=== PATIENT | male | born 1960 | race Caucasian/White ===

== ENCOUNTER 2019-03-03 10:53 | Inpatient (IN) | payer MEDICAID ==
[~2019-03-03] VITALS: Ht 190.5 cm; Wt 117.9 kg
[2019-03-03 11:29] VITALS: BP 111/75
--- NOTE | 2019-03-03 12:44 | NUR ---
PT TO ER BED 9 VIA WHEELCHAIR
[2019-03-03 12:59] LABS: BASOPHILS # (AUTO) 0.1 K/uL (0.00-0.22); BASOPHILS % (AUTO) 0.8 % (0.0-2.0); EOSINOPHILS # (AUTO) 0.1 K/uL (0-0.4); HEMATOCRIT 42.9 % (36-52); HEMOGLOBIN 14.6 g/dL (12.0-18.0); LYMPHOCYTES # (AUTO) 1.5 K/uL (2.0-11.5); LYMPHOCYTES % (AUTO) 18.5 % (20.5-51.1); MEAN CORPUSCULAR HEMOGLOBIN 29 pg (27-31); MEAN CORPUSCULAR HGB CONC 34 g/dL (33-37); MEAN CORPUSCULAR VOLUME 85.3 fL (80-94); NEUTROPHILS # (AUTO) 5.4 K/uL (1.8-7.7); NEUTROPHILS % (AUTO) 67.7 % (42.2-75.2); PLATELET COUNT (AUTO) 230 K/uL (140-450); RED BLOOD CELL COUNT(AUTO) 5.03 MIL/uL (4.20-6.10); RED CELL DISTRIBUTION WIDTH 13.6 % (11.6-13.7); WHITE BLOOD COUNT (AUTO) 7.9 K/uL (4.8-10.8)
--- NOTE | 2019-03-03 13:00 | NUR ---
VSS AT THIS TIME. AA0X4. PT SITTING IN BED
[2019-03-03 13:08] LABS: CARBON DIOXIDE 25.4 mmol/L (21-32); CREATININE 1.4 mg/dL (0.7-1.3); POTASSIUM 3.4 mmol/L (3.5-5.1)
[2019-03-03] MEDS ORDERED: NACL 0.9% 1,000 ML IV ONE (13:10)
[2019-03-03] MEDS ORDERED: VANCOMYCIN 1,000 MG in DEXTROSE 5% 250 ML IV ONE (13:10)
[2019-03-03] MEDS ORDERED: KETOROLAC 30 MG/ML VIAL IVP ONE (13:10)
[2019-03-03 13:13] LABS: PROTHROMBIN TIME 9.6 secs (10.8-13.4)
[2019-03-03 13:14] LABS: ALBUMIN 3.9 g/dL (3.4-5.0); TOTAL BILIRUBIN 0.8 mg/dL (0.0-1.0)
[2019-03-03] MEDS ORDERED: VANCOMYCIN 1,000 MG VIAL ONE (13:39)
[2019-03-03] MEDS ORDERED: DOCUSATE SODIUM 100 MG GELCAP PO PRN (13:45)
[2019-03-03] MEDS ORDERED: ONDANSETRON 4 MG/2 ML VIAL IM/IVP PRN (13:45)
[2019-03-03] MEDS ORDERED: ACETAMINOPHEN 325 MG TAB PO PRN (13:45)
[2019-03-03 14:17] LABS: APPEARANCE,URINE CLEAR (CLEAR); BILIRUBIN,URINE NEGATIVE (NEGATIVE); BLOOD, URINE NEGATIVE (NEGATIVE); COLOR,URINE YELLOW (YELLOW); LEUKOCYTE ESTERASE ,URINE NEGATIVE (NEGATIVE); NITRITE, URINE NEGATIVE (NEGATIVE); UGLUCOSE NEGATIVE (NEGATIVE)
[2019-03-03 14:29] LABS: BARBITURATE, URINE NEG. ng/ml (NEG <=200); BENZODIAZEPINE, URINE NEG. ng/mL (NEG <=200); CANNABINOID, URINE NEG. ng/mL (NEG <=50); COCAINE, URINE NEG. ng/mL (NEG <=300); OPIATE, URINE NEG. ng/mL (NEG <=2000); PHENCYCLIDINE SCREEN,URINE NEG. ng/mL (NEG <=25)
--- NOTE | 2019-03-03 14:50 | NUR ---
WHEEL CHAIR ASSISTED C/O LEFT LOWER LEG PAIN WORSEING, REDNESS, WARM TO TOUCH X 4 DAYS SEEN IN URGENT CARE RX BACTRIM 03/01/2019 DX CELLULITIS.PAIN 8/10 ACHING LLE.
--- NOTE | 2019-03-03 14:55 | NUR ---
Patient will be admitted to care of [facility]. Admited to [facility]. Will go to room 107B. Belongings list completed. Report to PAYAM TOMAS.
[2019-03-03 15:24] VITALS: BP 123/89
--- NOTE | 2019-03-03 15:25 | NUR ---
RECEIVED PT REPORT FROM CHARGE NURSE AT BEDSIDE. PT IS AAOX4. VITALS WAS TAKEN. MRSA NARES WAS SWABBED. ORIENTED PT TO ROOM AND CALL LIGHT. NO S/S OF ACUTE DISTRESS, RESPIRATION EVEN, UNLABORED ON ROOM AIR. SKIN DRY AND WARM. DX LEFT LEG CELLULITIS, DENIES PAIN AT THIS TIME, HOWEVER, PT STATED WHEN HE STANDING, HIS LEFT LEG HURTS A LOT. PT WAS ORIENTED TO ROOM AND CALL LIGHT. PLAN OF CARE WAS DISCUSSED WITH PATIENT. PT VERBALIZED UNDERSTANDING. BED AT LOWEST POSITION, SIDE RAILS UP. CALL LIGHT WITHIN REACH.
[2019-03-03] MEDS ORDERED: POTASSIUM CHLORIDE 10 MEQ TABER PO SCH (15:30)
[2019-03-03] MEDS: NACL 0.9% 1,000 ML IV SCH ×2 (15:30→23:23)
--- NOTE | 2019-03-03 16:00 | NUR ---
ADMISSION QUESTIONS DONE. PHYSICAL ASSESSMENT DONE. PICS TAKEN FOR THE LEFT LEG. LEFT LEG IS GENERALLY INTACT, HOWEVER THERE ARE SOME SCABS THAT WERE PICKED BY PT. CULTURE SWAB DONE ON THE OPEN SCAB.
[2019-03-03 16:30] LABS: FREE T4 (FREE THYROXINE) 1.24 ng/dL (0.76-1.46); THYROID STIMULATING HORMONE 1.75 uIU/mL (0.34-3.74)
[2019-03-03 16:31] LABS: CHOL/HDL RATIO 3.3 (1-4.5); LDL (CALC) 113.8 mg/dL (60-100); MAGNESIUM 2.6 mg/dL (1.8-2.4); PHOSPHORUS 3.1 mg/dL (2.5-4.9)
[2019-03-03] MEDS ORDERED: MORPHINE SULFATE 2 MG/ML SYR IVP PRN (18:45)
[2019-03-03] MEDS ORDERED: LIDOCAINE 2% 1000 MG/50 ML VIAL INJ SCH (19:00)
--- NOTE | 2019-03-03 19:20 | NUR ---
ENDORSED PT TO BUILDING APPRAISER RN. PT IS IN STABLE CONDITION. BALER OPERATOR IS DOING BIOPSY ON THE LEFT LEG AT THIS TIME.
--- NOTE | 2019-03-03 19:30 | NUR ---
RECEIVED BEDSIDE REPORT FROM GENOVEVA DUFF, PATIENT IN BED, DRS AT BEDSIDE DOING BX ON LEFT LEG CELLULITIS. ON RA, IV IN LEFT FA 20 G INFUSING NS AT 100 ML/HR, AT BEDSIDE, BED ALARM ON. WILL CONTINUE TO MONITOR
[2019-03-03] MEDS: NYSTATIN CRE 100 MU/GM 15 GM TUBE TP SCH (20:41)
[2019-03-03] MEDS: AMPICILLIN/SULBACTAM 3 GM in NACL 0.9% 100 ML IV SCH (20:41)
[2019-03-03] MEDS: CLOTRIMAZOLE 1% 30 GM CRM TUBE TP SCH (20:41)
--- NOTE | 2019-03-03 20:54 | NUR ---
DUE MEDICATIONS GIVEN, EDUCATION PROVIDED.
--- NOTE | 2019-03-03 23:00 | NUR ---
PATIENT RESTING IN BED, CALL LIGHT WITHIN REACH, WILL CONTINUE TO MONITOR.
[2019-03-04] VITALS: BP 107/56
--- NOTE | 2019-03-04 | NUR ---
V/S TAKEN BP 107/56
--- NOTE | 2019-03-04 02:01 | NUR ---
PATIENT RESTING IN BED NO SIGNS OF DISTRESS
--- NOTE | 2019-03-04 02:05 | NUR ---
PATIENT C/O PAIN GAVE NORCO
[2019-03-04] MEDS: HYDROcodone/APAP 7.5/325 MG 1 TAB PO PRN ×2 (02:06→08:28)
--- NOTE | 2019-03-04 03:51 | NUR ---
WILL GIVE DUE ANTIBIOTIC
[2019-03-04] MEDS: AMPICILLIN/SULBACTAM 3 GM in NACL 0.9% 100 ML IV SCH ×3 (03:57→21:20)
--- NOTE | 2019-03-04 05:26 | NUR ---
PATIENT SLEEPING IN BED CALL LIGHT WITHIN REACH
[2019-03-04 06:53] LABS: BASOPHILS % (AUTO) 0.8 % (0.0-2.0); EOSINOPHILS # (AUTO) 0.2 K/uL (0-0.4); EOSINOPHILS % (AUTO) 3.2 % (0.0-4.0); HEMATOCRIT 37.5 % (36-52); HEMOGLOBIN 12.9 g/dL (12.0-18.0); LYMPHOCYTES # (AUTO) 1.3 K/uL (2.0-11.5); MEAN CORPUSCULAR HEMOGLOBIN 29 pg (27-31); MEAN CORPUSCULAR HGB CONC 34 g/dL (33-37); MEAN CORPUSCULAR VOLUME 85.2 fL (80-94); MONOCYTES % (AUTO) 16.4 % (1.7-9.3); NEUTROPHILS # (AUTO) 3.5 K/uL (1.8-7.7); NEUTROPHILS % (AUTO) 58.6 % (42.2-75.2); PLATELET COUNT (AUTO) 220 K/uL (140-450); RED CELL DISTRIBUTION WIDTH 13.7 % (11.6-13.7)
[2019-03-04 07:18] LABS: ANION GAP 13.5 (8-16); CARBON DIOXIDE 24.5 mmol/L (21-32); CREATININE 1.3 mg/dL (0.7-1.3)
--- NOTE | 2019-03-04 07:22 | NUR ---
ENDORSED PATIENT TO DAY SHIFT NURSE PATIENT STABLE
--- NOTE | 2019-03-04 07:23 | NUR ---
GOT BEDSIDE REPORT FROM GENOVEVA SORIANO. PATIENT ON MED SURGE AND STANDARD PRECAUTIONS IN PLACE. PATIENT AAOX4 AND ON ROOM AIR, NO DISTRESS NOTED. FALL RISK PROTOCOL IN PLACE. R TOE FUNGAL INFECTION AND SKIN RASH ON GROIN CERTIFIED PROFESSIONAL MIDWIFE. L FOOT WITH BANDAGE FOR BIOPSY YESTERDAY. IV ON L FA 20 G INFUSING NS AT 100, IV ASYMPTOMATIC PATENT AND INTACT. BED IN LOW POSITION, CALL LIGHT WITHIN REACH, SIDE RAILS X2 UP
[2019-03-04 07:37] LABS: MAGNESIUM 2.4 mg/dL (1.8-2.4); PHOSPHORUS 3.8 mg/dL (2.5-4.9)
[2019-03-04 08:00] VITALS: BP 135/78
[2019-03-04] MEDS: MULTIVITAMIN/MINERALS 1 TAB PO SCH (08:28)
[2019-03-04] MEDS: NYSTATIN CRE 100 MU/GM 15 GM TUBE TP SCH ×2 (08:29→21:20)
[2019-03-04] MEDS: CLOTRIMAZOLE 1% 30 GM CRM TUBE TP SCH ×2 (08:29→21:20)
--- NOTE | 2019-03-04 08:41 | NUR ---
ADMINISTERED SCHEDULED MEDS AND NORCO PRN 4/10 PAIN. PATIENT TOLERATED WELL
--- NOTE | 2019-03-04 09:46 | NUR ---
SPOKE WITH PATIENT ABOUT ADVANCE DIRECTIVE. GAVE A COPY TO PATIENT.
--- NOTE | 2019-03-04 09:59 | NUR ---
PATIENT HAS BEEN SCREENED AND CATEGORIZED LOW NUTRITION RISK. PATIENT WILL BE SEEN WITHIN 7 DAYS OF ADMISSION. 03/10/[address]
[2019-03-04] MEDS: NACL 0.9% 1,000 ML IV SCH ×2 (10:18→20:12)
--- NOTE | 2019-03-04 12:20 | NUR ---
ADMINISTERED SCHEDULED MEDS. PATIENT TOLERATED WELL, AT BEDSIDE
[2019-03-04] MEDS ORDERED: KETOROLAC 30 MG/ML VIAL IVP SCH (14:00)
--- NOTE | 2019-03-04 14:43 | NUR ---
ADMINISTERED SCHEDULED MEDS. AT BEDSIDE, GIVEN TUNA SANDWICH REQUESTED
[2019-03-04 16:00] VITALS: BP 118/74
--- NOTE | 2019-03-04 17:10 | NUR ---
PATIENT SLEEPING, NO DISTRESS AT THIS TIME, ON ROOM AIR
--- NOTE | 2019-03-04 19:25 | NUR ---
GAVE BEDSIDE REPORT TO GENOVEVA SORIANO. PATIENT ENDORSED IN STABLE CONDITION
--- NOTE | 2019-03-04 19:30 | NUR ---
RECEIVED BEDSIDE REPORT FROM DAY SHIFT RN, PATIENT IN BED, DENIES PAIN, FAMILY AT BEDSIDE QUESTIONS ANSWERED, LEFT FOOT DRESSING INTACT, IV IN LEFT FA 20 G INFUSING NS, CALL LIGHT WITHIN REACH, BED ALARM ON WILL CONTINUE TO MONITOR
--- NOTE | 2019-03-04 21:20 | NUR ---
DUE MEDICATIONS GIVEN PATIENT TOLERATING WELL
--- NOTE | 2019-03-04 22:30 | NUR ---
PATIENT RESTING IN BED NO SIGNS OF DISTRESS OR PAIN
[2019-03-05] VITALS: BP 132/77
--- NOTE | 2019-03-05 00:05 | NUR ---
V/S ALL STABLE, DENIES PAIN AT THIS TIME
--- NOTE | 2019-03-05 01:56 | NUR ---
SLEEPING IN BED
[2019-03-05] MEDS: AMPICILLIN/SULBACTAM 3 GM in NACL 0.9% 100 ML IV SCH ×3 (04:23→20:12)
--- NOTE | 2019-03-05 04:30 | NUR ---
DUE AMPICILLIN GIVEN
[2019-03-05] MEDS: NACL 0.9% 1,000 ML IV SCH ×2 (05:02→16:21)
--- NOTE | 2019-03-05 06:00 | NUR ---
PATIENT RESTING IN BED
--- NOTE | 2019-03-05 07:09 | NUR ---
ENDORSED PATIENT TO DAY SHIFT NURSE PATIENT STABLE
--- NOTE | 2019-03-05 07:10 | NUR ---
GOT BEDSIDE REPORT FROM GENOVEVA SORIANO. PATIENT ON MED SURGE AND STANDARD PRECAUTIONS IN PLACE. PATIENT AAOX4 AND ON ROOM AIR, NO DISTRESS NOTED. L LEG CELLULITIS AND DRESSING CLEAN DRY AND INTACT. FUNGAL INFECTION R TOE OPEN TO AIR, SKIN RASH ON GROIN. IV ON L FA 20 G INFUSING NS AT 75, IV ASYMPTOMATIC PATENT AND INTACT. BED IN LOW POSITION, CALL LIGHT WITHIN REACH, SIDE RAILS X2 UP
[2019-03-05 08:00] VITALS: BP 149/86
--- NOTE | 2019-03-05 08:52 | NUR ---
DUE TO LUAN SCORE CHANGE, PATIENT HAS BEEN CATEGORIZED MODERATE RISK AND WILL BE SEEN WITHIN 3-5 DAYS FROM ADMISSION. 03/06/19- 03/08/[address]
[2019-03-05] MEDS: MULTIVITAMIN/MINERALS 1 TAB PO SCH (08:55)
[2019-03-05] MEDS: CLOTRIMAZOLE 1% 30 GM CRM TUBE TP SCH ×2 (08:55→20:12)
[2019-03-05] MEDS: NYSTATIN CRE 100 MU/GM 15 GM TUBE TP SCH ×2 (08:55→20:13)
--- NOTE | 2019-03-05 09:00 | NUR ---
ADMINISTERED SCHEDULED MEDS. PATIENT TOLERATED WELL
--- NOTE | 2019-03-05 09:50 | NUR ---
PT. SEEN BY DR. LI, TRANSCRIPTION TYPIST. WILL CONTINUE TO FOLLOW HIS ORDER.
[2019-03-05] MEDS: HYDROcodone/APAP 7.5/325 MG 1 TAB PO PRN (10:00)
--- NOTE | 2019-03-05 10:00 | NUR ---
ADMINISTERED NORCO PRN FOR L CALF PAIN 04/28
--- NOTE | 2019-03-05 12:13 | NUR ---
ADMINISTERED SCHEDULED MEDS. PATIENT TOLERATED WELL, AT BEDSIDE
--- NOTE | 2019-03-05 14:32 | NUR ---
PATIENT SLEEPING, ON ROOM AIR, NO DISTRESS NOTED
[2019-03-05 16:00] VITALS: BP 133/70
--- NOTE | 2019-03-05 16:48 | NUR ---
PATIENT WATCHING TV, ON ROOM AIR, NO DISTRESS NOTED
--- NOTE | 2019-03-05 19:21 | NUR ---
GAVE REPORT TO GENOVEVA SLAUGHTER. PATIENT ENDORSED IN STABLE CONDITION
--- NOTE | 2019-03-05 19:25 | NUR ---
RECEIVED FROM AM RN IN BED SITTING UP TALKING ON THE PHONE. GOOD AFFECT. NO COMPLAINTS OF PAIN. ABLE TO VERBALIZE NEEDS WELL. CALL LIGHT WITH IN REACH AND CARE PLANS FOR THE NIGHT DISCUSSED WITH HIM. DX. OF LEFT LEG CELLULITIS. AFEBRILE. IVF SITE TO LEFT FOREARM INTACT AND NO INFILTRATION. ENCOURAGED TO CALL FOR ANY HELP HE MAY NEED.
--- NOTE | 2019-03-05 22:00 | NUR ---
PT. STILL AWAKE AND WATCHING TV. NO COMPLAINTS DONE. DENIES ANY PAIN AT THIS TIME. CALL LIGHT WITH IN REACH.
[2019-03-05 23:22] VITALS: BP 127/81
--- NOTE | 2019-03-05 23:23 | NUR ---
PT. STILL AWAKE WATCHING TV. PROVIDED WITH SNACK REQUESTED. "I AM HUNGRY" ABLE TO VERBALIZE NEEDS WELL. ABLE TO USE CALL LIGHT FOR HELP WELL.
--- NOTE | 2019-03-06 01:34 | NUR ---
PT. SLEEPING. NO RESTLESSNESS. CALL LIGHT WITH IN REACH.
[2019-03-06] MEDS: NACL 0.9% 1,000 ML IV SCH ×2 (02:12→04:36)
--- NOTE | 2019-03-06 03:00 | NUR ---
PT. SLEEPS IN AND OUT AT THIS TIME. URINATED IN URINAL. DRESSING TO LEFT LEG INTACT AND NO BLEEDING.
[2019-03-06] MEDS: AMPICILLIN/SULBACTAM 3 GM in NACL 0.9% 100 ML IV SCH (04:29)
--- NOTE | 2019-03-06 06:19 | NUR ---
AM PERSONAL HYGIENE RENDERED BY LAB ASST. NO COMPLAINTS DONE. ABLE TO VERBALIZE WELL. DENIES PAIN. IVF SITE INTACT AND NO INFILTRATION. DRESSING TO LEFT LEG INTACT AND NO BLEEDING.
--- NOTE | 2019-03-06 07:20 | NUR ---
GOT BEDSIDE REPORT FROM GENOVEVA SLAUGHTER. PATIENT ON MED SURGE AND STANDARD PRECAUTIONS IN PLACE. PATIENT AAOX4 AND ON ROOM AIR, NO DISTRESS NOTED. L LEG WOUND DRESSING CLEAN DRY AND INTACT. PATIENT AMBULATORY WITH ASSIST AND CONTINENT. IV ON L FA 20 G INFUSING NS AT 100, IV ASYMPTOMATIC PATENT AND INTACT. FALL RISK PROTOCOL IN PLACE. BED IN LOW POSITION, CALL LIGHT WITHIN REACH, SIDE RAILS X2 UP
[2019-03-06 08:00] VITALS: BP 136/75
[2019-03-06] MEDS: NYSTATIN CRE 100 MU/GM 15 GM TUBE TP SCH (09:00)
[2019-03-06] MEDS: CLOTRIMAZOLE 1% 30 GM CRM TUBE TP SCH (09:00)
[2019-03-06] MEDS: MULTIVITAMIN/MINERALS 1 TAB PO SCH (10:06)
[2019-03-06] MEDS ORDERED: AMOX-999 PO (10:08)
[2019-03-06] MEDS ORDERED: BETA1CRE5 TP (10:10)
[2019-03-06] MEDS ORDERED: IBUP-1842 PO (10:10)
[2019-03-06] MEDS ORDERED: NYST1CRE8 TP (10:19)
--- NOTE | 2019-03-06 10:19 | NUR ---
ADMINISTERED SCHEDULED MEDS. PATIENT TOLERATED WELL
--- NOTE | 2019-03-06 11:20 | NUR ---
DISCHARGE INSTRUCTIONS PROVIDED TO PATIENT. INSTRUCTED TO FOLLOW UP WITH PCP WITHIN 5-7 DAYS AND TO COMPLETE FULL COURSE OF ANTIBIOTICS. [employer] PROVIDED TO PATIENT ORDERED. ER HAS FACE SHEET AND GREEN PAPER SIGNED BY PATIENT. PICTURES TAKEN OF L FOOT. PT REFUSED BOTH PNA AND FLU VACCINES. ALL BELONGINGS SENT HOME WITH PATIENT. PRESCRIPTION GIVEN TO PATIENT IN FOLDER. PATIENT VERBALIZED UNDERSTANDING. REMOVED WRIST BANDS AND IV, IV TIP INTACT. PATIENT WHEELED TO MAIN [employer]
== END 2019-03-06 11:20 | disposition home or self-care (01) | DRG 380 ==
LOC: MED 10:53 → MMU 13:42 → MTU 14:35
PROVIDERS: ADMIT General Practice; ATTEND General Practice
PROC: 0HBLXZX Excision of Left Lower Leg Skin, External Approach, Diagnostic (ICD-10-PCS; principal; 2019-03-03)
DX: L97.929 Non-pressure chronic ulcer of unspecified part of left lower leg with unspecified severity (principal); N17.0 Acute kidney failure with tubular necrosis; G93.41 Metabolic encephalopathy; E83.41 Hypermagnesemia; E87.1 Hypo-osmolality and hyponatremia; B35.3 Tinea pedis; L03.116 Cellulitis of left lower limb; E87.6 Hypokalemia; B35.6 Tinea cruris; E78.5 Hyperlipidemia, unspecified; R73.03 Prediabetes
CPT/HCPCS: 36415; 71045; 73590; 73610; 80048; 80053; 80305; 81003; 82150; 83036; 83605; 83690; 83735; 83880; 84100; 84403; 84436; 84439; 84443; 84479; 84484; 84550; 85025; 85610; 87040; 87070; 87081; 87186; 88305; 93005; 93970; 96374; 97110; 97116; 97161-GP; 97530; 99285; J0295; J1885; J2001; J2270; J3370; J7030; Q0092

== ENCOUNTER 2019-03-20 09:55 | Emergency (ER) | payer MEDICAID ==
[~2019-03-20] VITALS: Ht 188 cm; Wt 115.7 kg
[~2019-03-20 09:55] MED LIST: AMOX-999 PO; BETA1CRE5 TP; IBUP-1842 PO; NYST1CRE8 TP
[2019-03-20 10:05] VITALS: BP 142/88
--- NOTE | 2019-03-20 10:05 | NUR ---
PT BIB SELF FOR SUTURE REMOVAL FROM LATERAL LT LEG. PT REPORTS SORE LT ANKLE PAIN AT 5/10. PT WAS INOPATIENT HERE AT [facility] FOR CELLULITIS AND HAD BIOPSY PERFORMED ON LT LEG. WOUND IS CLOSED, NO ERYTHEMA, EDEMA, OR DRAINAGE PRESENT. VSS. ER MD TO SEE PT. MEDHX:DENIES RX:DENIES
[2019-03-20 11:21] VITALS: BP 136/96
--- NOTE | 2019-03-20 11:21 | NUR ---
Patient discharged with v/s stable. Written and verbal after care instructions given and explained. Patient verbalized understanding. Ambulatory with steady gait. All questions addressed prior to discharge. Advised to follow up with PMD.
== END 2019-03-20 11:21 | disposition home or self-care (01) ==
LOC: MED 09:55
DX: Z48.02 Encounter for removal of sutures (principal); Z79.2 Long term (current) use of antibiotics; Z79.1 Long term (current) use of non-steroidal anti-inflammatories (NSAID); Z79.899 Other long term (current) drug therapy
CPT/HCPCS: 99281

== ENCOUNTER 2019-04-02 16:37 | Emergency (ER) | payer MEDICAID ==
[~2019-04-02] VITALS: Ht 188 cm; Wt 120.4 kg
[2019-04-02 16:38] VITALS: BP 160/95
--- NOTE | 2019-04-02 17:00 | NUR ---
C/O COUGH, SORE THROAT & GENERALIZED WEAKNESS X TODAY. LEFT ANKLWE PAIN & SWOLLEN X 2 MONTHS.MED HX : CELLULITIS LEFT LOWER LEG & ADMITTED HERE 03/03- 03/06 .
[2019-04-02 17:38] VITALS: BP 158/88
== END 2019-04-02 17:39 | disposition home or self-care (01) ==
LOC: MED 16:37
DX: R05 Cough (principal); R42 Dizziness and giddiness; Z79.899 Other long term (current) drug therapy
CPT/HCPCS: 99283

== ENCOUNTER 2019-12-06 11:58 | Emergency (ER) | payer MEDICAID ==
[~2019-12-06] VITALS: Ht 190.5 cm; Wt 122.5 kg
[2019-12-06 12:07] VITALS: BP 150/80
--- NOTE | 2019-12-06 12:08 | NUR ---
58/M presents to ED with complaints of left ankle pain x 2 weeks. Pt reports he was admitted here approximately 8 months ago for cellulitis to left ankle. Pt denies any injury or fall. Denies any discoloration, redness or swelling. Pt states "I came in before it gets to that point." Pt denies any medical hx otherwise. Ambulatory with steady gait. Pt c/o 10 pain, aching, non radiating, constant. VSS.
[2019-12-06 13:19] LABS: BASOPHILS % (AUTO) 0.8 % (0.0-2.0); EOSINOPHILS # (AUTO) 0.1 K/uL (0-0.4); EOSINOPHILS % (AUTO) 2.1 % (0.0-4.0); HEMATOCRIT 41.5 % (36-52); HEMOGLOBIN 13.9 g/dL (12.0-18.0); LYMPHOCYTES # (AUTO) 1.1 K/uL (2.0-11.5); LYMPHOCYTES % (AUTO) 20.1 % (20.5-51.1); MEAN CORPUSCULAR HEMOGLOBIN 29 pg (27-31); MEAN CORPUSCULAR HGB CONC 34 g/dL (33-37); MEAN CORPUSCULAR VOLUME 86.9 fL (80-94); MONOCYTES # (AUTO) 0.7 K/uL (0.8-1.0); MONOCYTES % (AUTO) 13.3 % (1.7-9.3); NEUTROPHILS # (AUTO) 3.4 K/uL (1.8-7.7); NEUTROPHILS % (AUTO) 63.7 % (42.2-75.2); PLATELET COUNT (AUTO) 221 K/uL (140-450); RED BLOOD CELL COUNT(AUTO) 4.78 MIL/uL (4.20-6.10); RED CELL DISTRIBUTION WIDTH 13.5 % (11.6-13.7); WHITE BLOOD COUNT (AUTO) 5.3 K/uL (4.8-10.8)
[2019-12-06] MEDS ORDERED: IBUPROFEN 800 MG TAB PO ONE (13:30)
[2019-12-06 14:24] VITALS: BP 150/80
== END 2019-12-06 14:24 | disposition home or self-care (01) ==
LOC: MED 11:58
DX: S93.402A Sprain of unspecified ligament of left ankle, initial encounter (principal); Z79.899 Other long term (current) drug therapy; X58.XXXA Exposure to other specified factors, initial encounter; Y93.89 Activity, other specified; Y92.89 Other specified places as the place of occurrence of the external cause; Y99.8 Other external cause status
CPT/HCPCS: 36415; 73610; 85025; 99284; Q0092

== ENCOUNTER 2019-12-07 21:26 | Inpatient (IN) | payer MEDICAID ==
[~2019-12-07] VITALS: Ht 190.5 cm; Wt 122.0 kg
[2019-12-07 21:40] VITALS: BP 178/89
--- NOTE | 2019-12-07 21:43 | NUR ---
TO LOBBY A/W BED VIA WHEEL CHAIR
[2019-12-07] MEDS ORDERED: ACETAMINOPHEN EXTRA STRENGTH 500 MG TAB PO ONE (21:45)
--- NOTE | 2019-12-07 22:27 | NUR ---
PT BROUGHT TO BED 6 VIA WHEELCHAIR WITH FAMILY MEMBER
--- NOTE | 2019-12-07 22:30 | NUR ---
PT CAME IN TO ER WITH C/O PAIN TO THE LEFT LEG. PT STATED HE HAS HX OF CELLULITIS ON LEFT LEG. PT HAS SOME SWELLING AND REDNESS TO SITE. PT IS ALERT AND IS ABLE TO ANSWER QUESTIONS APPROPRIATELY. PT STATED THE PAIN IS 8/10 X 3 DAYS. PT HAS SOME DIFFICLUTY WALKING DUE TO PAIN. PT IS ABLE TO PERFORM ROM. ERMD MADE AWARE OF STATUS. SAFETY MEASURES IN PLACE. WILL CONTINUE TO MONITOR. AT BEDSIDE.
[2019-12-07] MEDS ORDERED: VANCOMYCIN 1,000 MG in DEXTROSE 5% 250 ML IV ONE (23:00)
[2019-12-07] MEDS ORDERED: VANCOMYCIN 1,000 MG VIAL ONE (23:17)
--- NOTE | 2019-12-08 00:15 | NUR ---
PT SEATED UPRIGHT IN BED. VISIBKLE CHEST RISE AND FALL NOTED. FAMILY AT BEDSIDE. WILL CONTINUE TO MONITOR.
--- NOTE | 2019-12-08 01:20 | NUR ---
PT TEMP STILL ELEVATED AT 101.8, ERMD NOTIFIED.
[2019-12-08] MEDS ORDERED: HYDROcodone/APAP 5/325 MG 1 TAB TAB PO PRN (02:00)
[2019-12-08] MEDS ORDERED: NACL 0.9% 1,000 ML IV SCH (02:00)
[2019-12-08] MEDS ORDERED: LORazepam 2 MG/ML VIAL IM/IVP PRN (02:00)
[2019-12-08] MEDS ORDERED: ONDANSETRON 4 MG/2 ML VIAL IM/IVP PRN (02:00)
[2019-12-08] MEDS ORDERED: MORPHINE SULFATE 2 MG/ML SYR IVP PRN (02:00)
[2019-12-08] MEDS ORDERED: DOCUSATE SODIUM 100 MG GELCAP PO PRN (02:00)
[2019-12-08 02:12] LABS: HEMATOCRIT 40.7 % (36-52); HEMOGLOBIN 13.7 g/dL (12.0-18.0); MEAN CORPUSCULAR HEMOGLOBIN 29 pg (27-31); MEAN CORPUSCULAR HGB CONC 34 g/dL (33-37); PLATELET COUNT (AUTO) 205 K/uL (140-450); RED BLOOD CELL COUNT(AUTO) 4.67 MIL/uL (4.20-6.10); RED CELL DISTRIBUTION WIDTH 13.6 % (11.6-13.7); WHITE BLOOD COUNT (AUTO) 8.8 K/uL (4.8-10.8)
[2019-12-08 02:27] LABS: ALBUMIN 4.1 g/dL (3.4-5.0); ANION GAP 15.8 (8-16); CARBON DIOXIDE 23.9 mmol/L (21-32); CREATININE 1.5 mg/dL (0.7-1.3); POTASSIUM 3.7 mmol/L (3.5-5.1); TOTAL BILIRUBIN 0.9 mg/dL (0.0-1.0)
[2019-12-08 02:37] LABS: CHOL/HDL RATIO 2.3 (1-4.5); HDL CHOLESTEROL 57 mg/dL (40-60); LDL (CALC) 68 mg/dL (60-100); LIPASE 68 U/L (73-393); MAGNESIUM 1.7 mg/dL (1.8-2.4); PHOSPHORUS 2.9 mg/dL (2.5-4.9); THYROID STIMULATING HORMONE 0.23 uIU/mL (0.34-3.74); TRIGLYCERIDES 37 mg/dL (30-150)
--- NOTE | 2019-12-08 02:40 | NUR ---
Patient will be admitted to care of [facility]. Admited to [facility]. Will go to room 106A. Belongings list completed. Report to GENOVEVA COURTNEY. TRANSFER OF CARE AT THIS TIME.
[2019-12-08 02:42] VITALS: BP 143/87
--- NOTE | 2019-12-08 02:42 | NUR ---
RECEIVED BEDSIDE REPORT FROM PRIVATE BRANCH EXCHANGE INSTALLER ORTIZ. PT IS AAOX4. RESPIRATIONS ARE EQUAL AND UNLABORED ON ROOM AIR. LUNG SOUNDS ARE CLEAR. IS AT BEDSIDE. C/C PAIN AND SWELLING ON LLE. DX LLE CELLULITIS. SKIN IS INTACT. DARK PIGMENTATION NOTED WITH REDNESS SURROUNDING. LEG SLIGHTLY SWOLLEN NON PITTING. PT AMBULATED FROM GURNEY TO BED WITH STEADY GAIT. PT STATES FEVER OF 103 SINCE 12/07 AT HOME. RECEIVED TYLENOL IN ER. ADMIT VS: 102.7 143/87 HR 107 97%RA 18 DENIES PAIN. MRSA SWAB OBTAINED. POC DISCUSSED WITH PT AND . ORIENTED PT TO ROOM,STAFF, CALL LIGHT AND VISITING HOURS.
[2019-12-08 02:43] LABS: PROTHROMBIN TIME 10.6 secs (10.8-13.4)
[2019-12-08 02:44] LABS: APPEARANCE,URINE CLEAR (CLEAR); BILIRUBIN,URINE NEGATIVE (NEGATIVE); BLOOD, URINE 1+ (NEGATIVE); COLOR,URINE YELLOW (YELLOW); LEUKOCYTE ESTERASE ,URINE NEGATIVE (NEGATIVE); NITRITE, URINE NEGATIVE (NEGATIVE); UGLUCOSE NEGATIVE (NEGATIVE)
[2019-12-08] MEDS: ACETAMINOPHEN 325 MG TAB PO PRN ×2 (03:09→12:33)
--- NOTE | 2019-12-08 03:09 | NUR ---
TYLENOL GIVEN FOR TEMP 102.[address] ARE IN PLACE. CALL LIGHT IS WITHIN REACH.
[2019-12-08 03:14] LABS: BARBITURATE, URINE NEG. ng/ml (NEG <=200); BENZODIAZEPINE, URINE NEG. ng/mL (NEG <=200); CANNABINOID, URINE NEG. ng/mL (NEG <=50); COCAINE, URINE NEG. ng/mL (NEG <=300); OPIATE, URINE NEG. ng/mL (NEG <=2000); PHENCYCLIDINE SCREEN,URINE NEG. ng/mL (NEG <=25)
[2019-12-08 03:17] LABS: LYMPHOCYTES % (MANUAL) 9 % (20-46); MONOCYTES % (MANUAL) 4 % (5-12)
[2019-12-08 03:49] LABS: RBC,URINE 0-5 /HPF (0-5); WBC,URINE 0-5 /HPF (0-5)
[2019-12-08 04:00] VITALS: BP 130/82
[2019-12-08] MEDS ORDERED: AMPICILLIN/SULBACTAM 3 GM VIAL ONE (04:10)
[2019-12-08] MEDS: NACL 0.9% 1,000 ML IV SCH ×2 (04:19→17:05)
[2019-12-08] MEDS: AMPICILLIN/SULBACTAM 3 GM in NACL 0.9% 100 ML IV SCH ×3 (04:20→21:35)
--- NOTE | 2019-12-08 04:20 | NUR ---
TEMP GOING DOWN 101.4 PT ON COOLING MEASURES WITH NO BLANKET. AC HIGH. ICE PACKS APPLIED. MESERET MEDS GIVEN. PT TOLERATED WELL. ALL NEEDS MET. WILL CONTINUE TO MONITOR.
[2019-12-08] MEDS ORDERED: MAGNESIUM OXIDE 400 MG TAB PO SCH (04:30)
[2019-12-08] MEDS ORDERED: AMPICILLIN/SULBACTAM 1.5 GM in NACL 0.9% 50 ML IV SCH (05:00)
--- NOTE | 2019-12-08 06:00 | NUR ---
RECHECK TEMP 98.6. ALL NEEDS MET AT THIS TIME. CALL LIGHT IS WITHIN REACH.
--- NOTE | 2019-12-08 07:15 | NUR ---
GAVE BEDSIDE REPORT TO DAY RN. PT ENDORSED IN STABLE CONDITION.
--- NOTE | 2019-12-08 07:15 | NUR ---
RECEIVED BEDSIDE REPORT FROM STEEPING PRESS OPERATOR NURSE. PT IS ASLEEP, NO S/S OF DISTRESS, NO SOB, ON ROOM AIR. SKIN INTACT ASIDE FROM CELLULITIS SORES ON HIS LLE. IV SITE L AC 20 G INFUSING NS 80 ML/HR. CALL LIGHT IS WITHIN REACH. WILL CONTINUE TO MONITOR.
[2019-12-08 08:00] VITALS: BP 124/81
--- NOTE | 2019-12-08 08:40 | NUR ---
PT REFUSED AM SUBQ HEPARIN. STATES, "I WANT TO OPT OUT OF IT". I EXPLAINED TO PT BENEFITS OF HEPARIN AND RISKS OF OPTING OUT.
--- NOTE | 2019-12-08 08:42 | NUR ---
PATIENT HAS BEEN SCREENED AND CATEGORIZED MODERATE NUTRITION RISK. PATIENT WILL BE SEEN WITHIN 3-5 DAYS OF ADMISSION. 12/10/19 12/12/[address]
--- NOTE | 2019-12-08 09:17 | NUR ---
PT HAVING US OF THE BLE'S
--- NOTE | 2019-12-08 10:30 | NUR ---
WOUND CARE EVALUATION NOTES: REASON FOR EVALUATION: LEFT LOWER EXTREMITY CELLULITIS WOUND ASSESSMENT COMPLETED ON THIS 58 Y/O MALE ADMITTED TO [facility] FOR LEFT LOWER EXTREMITY CELLULITIS. PATIENT IS FROM HOME. PAST MEDICAL HISTORY INCLUDES RECURRENT LLE CELLULITIS X 5 YEARS. LABS ARE WBC:9.5, H/H14.2/42.6, GLUCOSE:100, ALBUMIN 4.1. PATIENT IS AAOX4, VERBAL, AT BEDSIDE. SKIN IS WARM TO TOUCH. HAS LLE NON-OPEN CELLULITIS, FROM GROIN TO ANKLE, WITH ERYTHEMA, INCREASED WARMTH, AND EDEMA. PEDAL PULSES PRESENT ON BILATERAL LOWER EXTREMITIES. PATIENT IS AMBULATORY WITH STEADY GAIT, ABLE TO TURN SELF. MUCOUS MEMBRANES ARE MOIST. VENOUS DOPPLER STUDY ON LLE IS NEGATIVE OF DVT. DOPPLER STUDY ULTRASOUND OF LLE SHOWED NO STENOSIS OR OCCLUSION OF BILATERAL LOWER EXTREMITIES AND ENLARGED LYMPH NODE IN THE LEFT GROIN. PATIENT IS CURRENTLY RECEIVING IV ANTIBIOTICS. PLAN OF CARE AND PREVENTATIVE MEASURES DISCUSSED WITH PATIENT/FAMILY AND PRIMARY RN. PATIENT/FAMILY AND PRIMARY RN VERBALIZED UNDERSTANDING. INTEGUMENTARY: - LEFT LOWER EXTREMITY HAS NON-OPEN CELLULITIS RUNNING DOWN FROM LEFT GROIN TO LEFT ANKLE, MOST NOTICEABLE AROUND LEFT CALF AREA. ERYTHEMA, INCREASED WARMTH, AND EDEMA PRESENT ON LLE. SKIN IS DRY, NO WEEPING, DRAINAGE, NOR ANY ODOR. RECOMMENDATIONS: - KEEP SKIN CLEAN AND DRY AT ALL TIMES. - CLEANSE AREA WITH NS, PAT DRY AND LEAVE OPEN TO AIR DAILY AND PRN IF SOILED. - KEEP LEFT LEG ELEVATED WHEN IN BED. - ASSESS AND MONITOR SKIN CONDITION EVERY SHIFT. - RD CONSULT RECOMMENDATIONS DISCUSSED WITH PRIMARY RN AND DR. TRAMMELL. WILL FOLLOW-UP PATIENT Q7-10 DAYS AND PRN. PLEASE CONTACT WOUND CARE NURSE FOR ANY CONCERNS AND CHANGES IN WOUND CONDITION.
--- NOTE | 2019-12-08 11:30 | NUR ---
Microelectronics Engineer Note: Basic Screen: Yes High Risk DC Screen [place]: YANICK HARRINGTON Home Relationship: Pre-Admission Living Arrangements: Lives with Other Prior ADL Independent Current Home Health Name/Tel: N/A Current DME/02 Name/Tel: N/A Current Hospice Name/Tel: N/A Current Dialysis Name/Tel: N/A Healthcare Decision Maker: Patient Advance Directive No Physician Orders for Life Sustaining Treatment Form No Patient/Family Have Educational Needs No Information Taught: Advance Directive Person Taught: Patient Spouse Teaching Tools: Verbal Factors Affecting Learning: None Participation Level: Refused Evaluation: Verbalizes Understanding Needs Additional Education: No Discipline: Case Mgt/Social Svcs Tentative Discharge Plan/Destination: No Needs Identified Will require assistance post discharge: No Referred to Gas Leak Inspector: No Tentative Discharge Plan Summary: Patient is a 58-year-old male admitted for left lower extremity cellulitis. Patient has PMHX of recurrent LLE cellulitis. Patient was admitted from home. SW met with patient at bedside to verify demographics. Patient stated that his home address is [address] [place] [address] rather than address on face sheet. Patient reports no history of mental health and no history of substance abuse. Patient stated his plan after discharge is to return home. No further needs identified. Signature: JUAN MANUEL Mitchell Date: Dec 08, 2019 Time: 11:26
[2019-12-08 11:44] LABS: BASOPHILS % (AUTO) 0.5 % (0.0-2.0); HEMATOCRIT 42.6 % (36-52); HEMOGLOBIN 14.2 g/dL (12.0-18.0); LYMPHOCYTES # (AUTO) 0.8 K/uL (2.0-11.5); LYMPHOCYTES % (AUTO) 8.2 % (20.5-51.1); MEAN CORPUSCULAR HEMOGLOBIN 29 pg (27-31); MEAN CORPUSCULAR HGB CONC 33 g/dL (33-37); MEAN CORPUSCULAR VOLUME 86.5 fL (80-94); MONOCYTES # (AUTO) 1.4 K/uL (0.8-1.0); MONOCYTES % (AUTO) 14.2 % (1.7-9.3); NEUTROPHILS # (AUTO) 7.3 K/uL (1.8-7.7); NEUTROPHILS % (AUTO) 77.1 % (42.2-75.2); PLATELET COUNT (AUTO) 186 K/uL (140-450); RED BLOOD CELL COUNT(AUTO) 4.93 MIL/uL (4.20-6.10); RED CELL DISTRIBUTION WIDTH 13.4 % (11.6-13.7); WHITE BLOOD COUNT (AUTO) 9.5 K/uL (4.8-10.8)
[2019-12-08 11:54] LABS: MAGNESIUM 2.2 mg/dL (1.8-2.4); PHOSPHORUS 2.6 mg/dL (2.5-4.9)
[2019-12-08 12:00] VITALS: BP 134/73
--- NOTE | 2019-12-08 12:45 | NUR ---
PT HAS A VISITOR AT BEDSIDE. PT C/O HEADACHE AND FEELING COLD. PRN TYLENOL ADMINISTERED AND EXTRA BLANKET PROVIDED.
[2019-12-08 12:49] LABS: ANION GAP 11.4 (8-16); CARBON DIOXIDE 29.9 mmol/L (21-32); CREATININE 1.3 mg/dL (0.7-1.3); POTASSIUM 4.3 mmol/L (3.5-5.1)
--- NOTE | 2019-12-08 14:00 | NUR ---
PT REPORTS THAT HIS HEADACHE IS "MUCH BETTER" AFTER THE TYLENOL. PT IS COMFORTABLE AND IN NO DISTRESS AT THIS TIME. CONTINUING TO MONITOR.
[2019-12-08 16:00] VITALS: BP 127/77
--- NOTE | 2019-12-08 19:25 | NUR ---
ENDORSED PT TO ASSOCIATE PROFESSOR OF BIBLICAL STUDIES NURSE IN STABLE CONDITION
--- NOTE | 2019-12-08 19:30 | NUR ---
RECEIVED FROM AM RN IN BED AWAKE AND ALERT.ABLE TO CARRY A CONVERSATION WELL WITH ME. CARE PLANS FOR THE NIGHT DISCUSSED WITH HIM. CALL LIGHT WITH IN REACH. AFEBRILE AT THIS TIME. ENCOURAGE TO CALL FOR ANY HELP HE MAY NEED OR IF IN PAIN. DX. OF CELLULITIS TO LEFT LOWER EXTREMITY. IVF SITE INTACT AND NO INFILTRATION NOTED.
--- NOTE | 2019-12-08 22:23 | NUR ---
RESIDENT MD AWARE OF PT. REFUSED HEPARIN SQ FOR 2100 ORDER. A/O X 4. ROM X 4. CLEAR SPEECH. PROS AND CONS OF NOT HAVING MEDICATION EXPLAINED. "NO IT IS OK" NEW IVF SITE TO RIGHT HAND #22 INSERTED RT OLD IVF SITE TO LAC LEAKING. TIP INTACT . TOLERATED WELL.
[2019-12-09] VITALS: BP 136/82
--- NOTE | 2019-12-09 00:52 | NUR ---
PT. SLEEPING. WOKE UP EASILY WHEN VITAL SIGNS TAKEN. ABLE TO VERBALIZE NEEDS WELL. NO PAIN COMPLAINTS DONE. AFEBRILE. CALL LIGHT WITH IN REACH.
--- NOTE | 2019-12-09 03:00 | NUR ---
PT. SLEEPING WELL. ABLE TO WAKE UP EASILY WHEN CALLED BY NAME. NO RESTLESSNESS NOTED .
[2019-12-09] MEDS: NACL 0.9% 1,000 ML IV SCH ×2 (05:00→11:15)
[2019-12-09] MEDS ORDERED: CLINDAMYCIN 600 MG/4 ML VIAL ONE (05:10)
[2019-12-09] MEDS: CLINDAMYCIN 600 MG in DEXTROSE 5% 50 ML IV SCH ×4 (05:13→21:25)
--- NOTE | 2019-12-09 05:53 | NUR ---
PT. SLEPT WELL THIS SHIFT. NO FEVER. ABLE TO VERBALIZE NEEDS WELL. SEEN PT. AMBULATING THE HALLWAY. NO COMPLAINTS DONE."I AM SO GLAD I AM HERE BECAUSE I FEEL BETTER ALREADY." ABLE TO USE CALL LIGHT FOR HELP.
--- NOTE | 2019-12-09 07:23 | NUR ---
ENDORSED TO NEXT RN FOR CONTINUITY OF CARE AWAKE AND ALERT. VERBALIZING WELL. AFEBRILE.
--- NOTE | 2019-12-09 07:24 | NUR ---
RECEIVED REPORT FROM TRAINING DEVELOPER NURSE SUKHJINDER FOR CONTINUITY OF CARE. PT IN STABLE CONDITION. RESPIRATIONS EVEN AND UNLABORED. IV INTACT AND PATENT. SAFETY MEASURES IN PLACE. BED IN LOW POSITION. CALL LIGHT AT BEDSIDE. BED ALARM ON. WILL CONTINUE TO MONITOR.
[2019-12-09 07:33] LABS: ANION GAP 11.7 (8-16); CARBON DIOXIDE 27.2 mmol/L (21-32); CREATININE 1.2 mg/dL (0.7-1.3); POTASSIUM 3.9 mmol/L (3.5-5.1)
[2019-12-09 07:38] LABS: MAGNESIUM 2.2 mg/dL (1.8-2.4); PHOSPHORUS 2.1 mg/dL (2.5-4.9)
[2019-12-09 08:00] VITALS: BP 127/84
[2019-12-09 08:23] LABS: BASOPHILS % (AUTO) 0.4 % (0.0-2.0); EOSINOPHILS % (AUTO) 0.3 % (0.0-4.0); HEMATOCRIT 39.7 % (36-52); HEMOGLOBIN 13.7 g/dL (12.0-18.0); LYMPHOCYTES # (AUTO) 1.3 K/uL (2.0-11.5); LYMPHOCYTES % (AUTO) 18.4 % (20.5-51.1); MEAN CORPUSCULAR HEMOGLOBIN 30 pg (27-31); MEAN CORPUSCULAR HGB CONC 35 g/dL (33-37); MEAN CORPUSCULAR VOLUME 85.9 fL (80-94); MONOCYTES # (AUTO) 1.3 K/uL (0.8-1.0); MONOCYTES % (AUTO) 19.1 % (1.7-9.3); NEUTROPHILS # (AUTO) 4.2 K/uL (1.8-7.7); NEUTROPHILS % (AUTO) 61.8 % (42.2-75.2); PLATELET COUNT (AUTO) 186 K/uL (140-450); RED BLOOD CELL COUNT(AUTO) 4.62 MIL/uL (4.20-6.10); WHITE BLOOD COUNT (AUTO) 6.9 K/uL (4.8-10.8)
--- NOTE | 2019-12-09 09:00 | NUR ---
REFUSED ORDERED DUE MEDICATION AT THIS TIME. PT IN STABLE CONDITION
[2019-12-09] MEDS ORDERED: SODIUM PHOS / POTASSIUM PHOS 1 PKT PDR PO SCH (10:30)
--- NOTE | 2019-12-09 11:10 | NUR ---
PT TALKING WITH VISITOR AT BEDSIDE. RESPIRATIONS EVEN AND UNLABORED. BED IN LOW POSITION. CALL LIGHT AT BEDSIDE. BED ALARM ON. WILL CONTINUE TO MONITOR.
--- NOTE | 2019-12-09 13:00 | NUR ---
PT REFUSED ORDERED IV ABX AT THIS TIME. PT STATED HE DOES NOT WANT ANY ABX UNTIL TOMORROW.
--- NOTE | 2019-12-09 15:38 | NUR ---
ALHAJI PAUL TALKED TO PT ABOUT TAKING ABX. PT AGREED TO TAKE 1300 ABX AT THIS TIME.
--- NOTE | 2019-12-09 17:22 | NUR ---
PT WALKING AROUND UNIT IN STABLE CONDITION. WILL CONTINUE TO MONITOR.
--- NOTE | 2019-12-09 19:15 | NUR ---
GAVE REPORT TO FUNDRAISING MANAGER NURSE FOR CONTINUITY OF CARE. PT IN STABLE CONDITION.
--- NOTE | 2019-12-09 19:20 | NUR ---
RECEIVED FROM AM RN IN BED AWAKE AND SITTING UP IN BED WITH FAMILY MEMBER AT BEDSIDE VISITING. PT. ON THE PHONE TALKING WITH SOMEONE. GOOD AFFECT. CARE PLANS DISCUSSED WITH THEM AND CALL LIGHT WITH IN REACH. AFEBRILE. PT. STATES HE FEELS BETTER AND WANTS TO GO HOME.
[2019-12-09 20:00] VITALS: BP 126/78
--- NOTE | 2019-12-09 23:51 | NUR ---
SLEEPING . WAKES UP EASILY WHEN CALLED BY NAME. NO COMPLAINTS DONE. CALL LIGHT WITH IN REACH.
--- NOTE | 2019-12-10 03:00 | NUR ---
CHECKED ON PT. SLEEPING. NO RESTLESSNESS.
[2019-12-10] MEDS: NACL 0.9% 1,000 ML IV SCH (05:05)
[2019-12-10] MEDS: CLINDAMYCIN 600 MG in DEXTROSE 5% 50 ML IV SCH (05:05)
--- NOTE | 2019-12-10 06:14 | NUR ---
LAB CAME IN AND BLOOD WORKS TAKEN. NO COMPLAINTS DONE. SLEPT WELL THIS SHIFT. WILL ENDORSE TO AM RN FOR CONTINUITY OF CARE.
[2019-12-10 07:15] LABS: BASOPHILS % (AUTO) 0.3 % (0.0-2.0); EOSINOPHILS # (AUTO) 0.1 K/uL (0-0.4); HEMATOCRIT 39.2 % (36-52); HEMOGLOBIN 13.2 g/dL (12.0-18.0); LYMPHOCYTES # (AUTO) 1.4 K/uL (2.0-11.5); LYMPHOCYTES % (AUTO) 30.9 % (20.5-51.1); MEAN CORPUSCULAR HEMOGLOBIN 29 pg (27-31); MEAN CORPUSCULAR HGB CONC 34 g/dL (33-37); MEAN CORPUSCULAR VOLUME 86.2 fL (80-94); MONOCYTES # (AUTO) 0.9 K/uL (0.8-1.0); MONOCYTES % (AUTO) 20.7 % (1.7-9.3); NEUTROPHILS % (AUTO) 45.1 % (42.2-75.2); PLATELET COUNT (AUTO) 202 K/uL (140-450); RED BLOOD CELL COUNT(AUTO) 4.55 MIL/uL (4.20-6.10); RED CELL DISTRIBUTION WIDTH 13.8 % (11.6-13.7); WHITE BLOOD COUNT (AUTO) 4.4 K/uL (4.8-10.8)
[2019-12-10 07:34] LABS: ANION GAP 11.3 (8-16); CARBON DIOXIDE 27.3 mmol/L (21-32); POTASSIUM 3.6 mmol/L (3.5-5.1)
[2019-12-10 07:43] LABS: MAGNESIUM 2.3 mg/dL (1.8-2.4); PHOSPHORUS 3.4 mg/dL (2.5-4.9)
[2019-12-10 08:00] VITALS: BP 127/88
--- NOTE | 2019-12-10 08:00 | NUR ---
Patient is awake and alert, oriented x 4. Patient with cellulitus to the left lower extremity. No co pain. Rodolfo Rodríguez RN
[2019-12-10] MEDS ORDERED: CLIN300C2 PO (08:22)
--- NOTE | 2019-12-10 11:30 | NUR ---
Patient discharged to home, received discharge instructions regarding med rx, and activity level to resume activity gradually, patient received note from attending to be off work for 7 days, take antibiotic round till completion. Patient gives verbal acknowledgement that he understands all information received. IV discontinued and patient discharged to home with at bedside, ambulated to lobby and to home in private vehicle. Rodolfo Rodríguez RN
== END 2019-12-10 10:55 | disposition home or self-care (01) | DRG 720 ==
LOC: MED 21:26 → MTU 12-08 02:01
PROVIDERS: ADMIT General Practice; ATTEND General Practice
DX: A41.9 Sepsis, unspecified organism (principal); N17.0 Acute kidney failure with tubular necrosis; L03.116 Cellulitis of left lower limb; E87.1 Hypo-osmolality and hyponatremia; E83.42 Hypomagnesemia; E05.90 Thyrotoxicosis, unspecified without thyrotoxic crisis or storm; E83.39 Other disorders of phosphorus metabolism
CPT/HCPCS: 36415; 71045; 80048; 80053; 80305; 81001; 82140; 83036; 83605; 83690; 83735; 83880; 84100; 84439; 84443; 84484; 85025; 85610; 85730; 87040; 87070; 87081; 93925; 93970; 96365; 96366; 99285; G0482; J0295; J1644; J3370; J3490; J7030; J7060; Q0092

== ENCOUNTER 2020-01-05 09:47 | Emergency (ER) | payer MEDICAID ==
[~2020-01-05] VITALS: Ht 188 cm; Wt 115.7 kg
[~2020-01-05 09:47] MED LIST changes: -AMOX-999 PO; -BETA1CRE5 TP; +CLIN300C2 PO; -IBUP-1842 PO; -NYST1CRE8 TP
[2020-01-05 10:05] VITALS: BP 134/92
--- NOTE | 2020-01-05 10:10 | NUR ---
WAIT AT LOBBY.
--- NOTE | 2020-01-05 12:39 | NUR ---
POSITIVE INFLUENZA A ---PT C/O COUGH CONGESTION BODYACHES FEVER CHILLS
[2020-01-05 13:25] VITALS: BP 134/92
--- NOTE | 2020-01-05 13:25 | NUR ---
Patient discharged with v/s stable. Written and verbal after care instructions given and explained. Patient alert, oriented and verbalized understanding of instructions. Ambulatory with steady gait. All questions addressed prior to discharge. ID band removed. Patient advised to follow up with PMD. Rx of TAMIFLU, AZITHROMYACIN, TESSALON PERLES given. Patient educated on indication of medication including possible reaction and side effects. Opportunity to ask questions provided and answered.
== END 2020-01-05 13:25 | disposition home or self-care (01) ==
LOC: MED 09:47
DX: J10.1 Influenza due to other identified influenza virus with other respiratory manifestations (principal); J45.909 Unspecified asthma, uncomplicated; Z79.899 Other long term (current) drug therapy
CPT/HCPCS: 87804; 99283

== ENCOUNTER 2020-01-09 05:45 | Emergency (ER) | payer MEDICAID ==
[~2020-01-09] VITALS: Ht 188 cm; Wt 115.7 kg
--- NOTE | 2020-01-09 05:55 | NUR ---
PT AMBULATED TO BED 3 WITH STEADY GAIT.
[2020-01-09 06:01] VITALS: BP 137/93
--- NOTE | 2020-01-09 06:05 | NUR ---
PT 59 Y/O MALE BIB SELF FOR C/O GENRALIZED BODY ACHES 1/10 PAIN AND GENERALIZED WEAKNESS. PT STATES HE WAS D/C FROM ER LAST WEEK WITH ABT BUT WAS NON COMPLIANT WITH MEDICATIONS. PT DOES NOT REMEMBER ABT NAME. PT LUNG SOUNDS CLEAR A/P BILAT. PT NOTED WITH NON-PRODUCTIVE COUGH. PT STATES HE HAS HAD COUGH X 1 WEEK. O2 SAT @ 96 % ON RA. RESPIRATIONS ARE EVEN AND UNLABORED. SKIN IS WARM AND DRY TO TOUCH. PT DENIES N/V/D. BS ACTIVE X 4. PT SOMACH IS ROUND, SOFT, AND NON-TENDER. PT AFEBRILE. PT SITTING UPRIGHT IN BED, PARTNER AT BEDSIDE. MEDHX: NONE ALLERGIES: NKA
[2020-01-09 06:40] VITALS: BP 137/93
--- NOTE | 2020-01-09 06:40 | NUR ---
Patient discharged with v/s stable. Written and verbal after care instructions given and explained. Patient alert, oriented and verbalized understanding of instructions. Ambulatory with steady gait. All questions addressed prior to discharge. ID band removed. Patient advised to follow up with PMD. Rx of ALBUTEROL, MOTRIN given. Patient educated on indication of medication including possible reaction and side effects. Opportunity to ask questions provided and answered.
== END 2020-01-09 06:40 | disposition home or self-care (01) ==
LOC: MED 05:45
DX: J11.1 Influenza due to unidentified influenza virus with other respiratory manifestations (principal); R03.0 Elevated blood-pressure reading, without diagnosis of hypertension; J45.909 Unspecified asthma, uncomplicated; Z79.899 Other long term (current) drug therapy
CPT/HCPCS: 99283

== ENCOUNTER 2021-01-11 07:34 | Emergency (ER) | payer MEDICAID ==
[~2021-01-11] VITALS: Ht 188 cm; Wt 126.2 kg
[2021-01-11 07:43] VITALS: BP 106/57
--- NOTE | 2021-01-11 07:52 | NUR ---
TAKEN TO BED 7
== END 2021-01-11 08:26 | disposition home or self-care (01) ==
LOC: MED 07:34
DX: M54.5 Low back pain (principal); J45.909 Unspecified asthma, uncomplicated; Z79.899 Other long term (current) drug therapy; Z98.890 Other specified postprocedural states
CPT/HCPCS: 81002; 99281; 99282

== ENCOUNTER 2021-11-13 10:40 | Emergency (ER) | payer MEDICAID ==
[~2021-11-13] VITALS: Ht 188 cm; Wt 127.0 kg
[2021-11-13 10:41] VITALS: BP 165/100
--- NOTE | 2021-11-13 10:54 | NUR ---
PT AMBULATED TO ER BED 8 WITH A STEADY GAIT.
--- NOTE | 2021-11-13 11:00 | NUR ---
DR GOODE AT BEDSIDE.
[2021-11-13] MEDS ORDERED: KETOROLAC 30 MG/ML VIAL IM ONE (11:05)
--- NOTE | 2021-11-13 11:06 | NUR ---
60 Y/O M C/O HEADACHE, L THIGH AND GARCIA PAIN 5/10. GENERAL WEEKNES FOR 2 DAYS. PT ZAMZAM N/V/D. PT HAD FEVER LAST NIGHT. NO MEDICATION TAKEN. NKA OR PMH
[2021-11-13] MEDS ORDERED: ACET-10509 PO (11:07)
[2021-11-13] MEDS ORDERED: CEPH-588 PO (11:07)
[2021-11-13] MEDS ORDERED: ACETAMINOPHEN EXTRA STRENGTH 500 MG TAB PO ONE (11:10)
[2021-11-13 11:52] VITALS: BP 155/99
--- NOTE | 2021-11-13 11:53 | NUR ---
Chart checked and completed. The patient's care was reviewed and supervised by Mariah Johnson RN.
== END 2021-11-13 11:52 | disposition home or self-care (01) ==
LOC: MED 10:40
DX: L03.116 Cellulitis of left lower limb (principal); I10 Essential (primary) hypertension; R51.9 Headache, unspecified
CPT/HCPCS: 99283; J1885

== ENCOUNTER 2023-02-10 18:35 | Inpatient (IN) | payer MEDICAID, OTHER ==
[~2023-02-10] VITALS: Ht 188 cm; Wt 113.4 kg
[~2023-02-10 18:35] MED LIST changes: +ACET-10509 PO; +CEPH-588 PO
[2023-02-10 18:47] VITALS: BP 145/82
[2023-02-10] MEDS ORDERED: VANCOMYCIN 1,000 MG in DEXTROSE 5% 250 ML IV ONE (19:05)
[2023-02-10] MEDS ORDERED: NACL 0.9% IV ONE (19:05)
[2023-02-10] MEDS ORDERED: KETOROLAC 30 MG/ML VIAL IVP ONE (19:05)
--- NOTE | 2023-02-10 19:26 | NUR ---
xray at bedside
--- NOTE | 2023-02-10 19:30 | NUR ---
RECEIVED IN BED 9 BIB C/O FEVERX1 DAY, TEMP IN TRIAGE 104.1 ORAL, NO MEDS PRIOR TO ARRIVAL. PER PT HAS CELLULITIS ON THE LEFT LOWER LEG. NKA PMH: DENIES
--- NOTE | 2023-02-10 20:00 | NUR ---
AWAKE AND DROWSY, AT BEDSIDE. DENIES C/O PAIN AT THIS TIME
[2023-02-10 20:14] LABS: HEMOGLOBIN 13.9 g/dL (12.0-18.0); MEAN CORPUSCULAR HEMOGLOBIN 29 pg (27-31); MEAN CORPUSCULAR HGB CONC 34 g/dL (33-37); MEAN CORPUSCULAR VOLUME 85.3 fL (80-94); PLATELET COUNT (AUTO) 202 K/uL (140-450); RED BLOOD CELL COUNT(AUTO) 4.81 MIL/uL (4.20-6.10); RED CELL DISTRIBUTION WIDTH 13.9 % (11.6-13.7); WHITE BLOOD COUNT (AUTO) 11.3 K/uL (4.8-10.8)
[2023-02-10 20:14] LABS: APPEARANCE,URINE CLEAR (CLEAR); BILIRUBIN,URINE NEGATIVE (NEGATIVE); BLOOD, URINE TRACE-I (NEGATIVE); COLOR,URINE YELLOW (YELLOW); LEUKOCYTE ESTERASE ,URINE NEGATIVE (NEGATIVE); NITRITE, URINE NEGATIVE (NEGATIVE); UGLUCOSE NEGATIVE (NEGATIVE)
[2023-02-10] MEDS ORDERED: VANCOMYCIN 1,000 MG VIAL ONE (20:16)
[2023-02-10 20:30] LABS: RBC,URINE 0-5 /HPF (0-5)
[2023-02-10 20:31] LABS: TRICHOMONAS,URINE None Seen /HPF (None Seen); WBC,URINE 0-5 /HPF (0-5); YEAST,URINE None Seen /HPF (None Seen)
[2023-02-10 20:33] LABS: ALBUMIN 4.1 g/dL (3.4-5.0); ANION GAP 13.3 (8-16); CARBON DIOXIDE 26.6 mmol/L (21-32); CREATININE 1.4 mg/dL (0.6-1.3); POTASSIUM 3.9 mmol/L (3.5-5.1); TOTAL BILIRUBIN 0.7 mg/dL (0.0-1.0)
[2023-02-10 20:37] LABS: LYMPHOCYTES % (MANUAL) 16 % (20-46); MONOCYTES % (MANUAL) 18 % (5-12)
[2023-02-10] MEDS ORDERED: IBUPROFEN 800 MG TAB PO ONE (21:35)
[2023-02-10] MEDS ORDERED: VANCOMYCIN PER PHARMACY MC PRN ×2 (21:35→21:45)
[2023-02-10] MEDS ORDERED: MORPHINE SULFATE 4 MG/ML SYR IVP PRN ×2 (21:35→21:45)
[2023-02-10] MEDS ORDERED: ACETAMINOPHEN 325 MG TAB PO PRN (21:35)
[2023-02-10] MEDS ORDERED: POTASSIUM CHLORIDE 10 MEQ TABER PO PRN ×2 (21:35→21:45)
[2023-02-10] MEDS ORDERED: KCL 20 MEQ IN 100 mL PREMIX 200 ML IV PRN ×2 (21:35→21:45)
[2023-02-10] MEDS ORDERED: MAGNESIUM OXIDE 400 MG TAB PO PRN ×2 (21:35→21:45)
[2023-02-10] MEDS ORDERED: MAG SULF 2000 MG/WATER PREMIX 50 ML IV PRN ×2 (21:35→21:45)
[2023-02-10] MEDS ORDERED: NACL 0.9% 1,000 ML IV SCH (21:35)
[2023-02-10] MEDS ORDERED: HYDROcodone/APAP 5/325 MG 1 TAB TAB PO PRN ×2 (21:35→21:45)
[2023-02-10] MEDS ORDERED: IBUPROFEN 800 MG TAB ONE (21:37)
[2023-02-10] MEDS ORDERED: ACETAMINOPHEN EXTRA STRENGTH 500 MG TAB ONE (21:37)
--- NOTE | 2023-02-10 22:56 | NUR ---
REPORT CALLED TO GENOVEVA KNIGHT
--- NOTE | 2023-02-10 23:05 | NUR ---
TO 104A VIA GURNEY, ATTACHED TO CM ACCOMPANIED BY SEARCH OPTIMIZATION ANALYST AND ERT
--- NOTE | 2023-02-10 23:10 | NUR ---
PT ARRIVED VIA GURNEY. PT AMBULATED TO BED 104A WITH STEADY GAIT. PT ALERT AND ORIENTED X 4, ON ROOM AIR WITH BREATHING EVEN AND UNLABORED. NO S/SX OF DISTRESS AT THIS TIME. NO COMPLAINS OF PAIN. CELLULITIS ON L LOWER LEG. PHOTOS TAKEN.MRSA SWAB DONE. ALL PRECAUTIONS IN PLACE. CALL LIGHT WITHIN REACH. WILL CONTINUE TO MONITOR.
[2023-02-10] MEDS: NACL 0.9% 1,000 ML IV SCH (23:30)
[2023-02-10] MEDS ORDERED: cefTRIAXone 1,000 MG VIAL ONE (23:32)
--- NOTE | 2023-02-11 00:30 | NUR ---
SCHEDULED MEDICATIONS GIVEN. PT TOLERATED WELL. ALL PRECAUTION IN PLACE. WILL CONTINUE TO MONITOR.
[2023-02-11 04:00] VITALS: BP 117/66
--- NOTE | 2023-02-11 05:33 | NUR ---
VITAL SIGNS STABLE. NO S/SX OF DISTRESS NOTED. NO COMPLAINS AT THIS TIME. ALL PRECAUTIONS IN PLACE. WILL CONTINUE TO MONITOR.
--- NOTE | 2023-02-11 07:28 | NUR ---
ENDORSED TO DAY SHIFT NURSE FOR CONTINUITY OF CARE. PT IS STABLE.
[2023-02-11 07:33] VITALS: BP 126/83
[2023-02-11] MEDS: ENOXAPARIN 40 MG/0.4 ML SYR SUBQ SCH (08:41)
[2023-02-11 08:42] LABS: HEMATOCRIT 38.2 % (36-52); MEAN CORPUSCULAR HEMOGLOBIN 29 pg (27-31); MEAN CORPUSCULAR HGB CONC 34 g/dL (33-37); MEAN CORPUSCULAR VOLUME 85.3 fL (80-94); PLATELET COUNT (AUTO) 179 K/uL (140-450); RED BLOOD CELL COUNT(AUTO) 4.48 MIL/uL (4.20-6.10); RED CELL DISTRIBUTION WIDTH 14.1 % (11.6-13.7); WHITE BLOOD COUNT (AUTO) 10.1 K/uL (4.8-10.8)
[2023-02-11] MEDS ORDERED: ENOXAPARIN 40 MG/0.4 ML SYR SUBQ SCH (09:00)
[2023-02-11] MEDS ORDERED: VANCOMYCIN HCL 1.25 GM in DEXTROSE 5% 250 ML IV SCH (09:00)
--- NOTE | 2023-02-11 09:34 | NUR ---
PATIENT HAS BEEN SCREENED AND CATEGORIZED LOW NUTRITION RISK. PATIENT WILL BE SEEN WITHIN 7 DAYS OF ADMISSION. 02/10/23-02/17/[address]
[2023-02-11 09:40] LABS: ALBUMIN 3.4 g/dL (3.4-5.0); ANION GAP 12.7 (8-16); CARBON DIOXIDE 26.2 mmol/L (21-32); CREATININE 1.2 mg/dL (0.6-1.3); MAGNESIUM 1.7 mg/dL (1.8-2.4); POTASSIUM 3.9 mmol/L (3.5-5.1); TOTAL BILIRUBIN 0.8 mg/dL (0.0-1.0)
[2023-02-11 09:53] LABS: BASOPHILS % (MANUAL) 0 % (0-2); EOSINOPHILS % (MANUAL) 0 % (0-4); LYMPHOCYTES % (MANUAL) 9 % (20-46); MONOCYTES % (MANUAL) 5 % (5-12)
[2023-02-11] MEDS: VANCOMYCIN 1.25GM PREMIX 250 ML IV SCH ×2 (10:10→21:00)
[2023-02-11] MEDS: NACL 0.9% 1,000 ML IV SCH (11:11)
[2023-02-11 11:45] VITALS: BP 120/73
[2023-02-11] MEDS ORDERED: LACT100C5 PO (13:45)
[2023-02-11] MEDS ORDERED: CEPH-588 PO (13:45)
[2023-02-11 15:54] VITALS: BP 138/71
[2023-02-11] MEDS: ACETAMINOPHEN 325 MG TAB PO PRN (18:03)
[2023-02-11 19:12] VITALS: BP 145/96
--- NOTE | 2023-02-11 19:30 | NUR ---
RECEIVED PT FROM DAY NURSE FOR CONTINUITY OF CARE. PT IS STABLE.
[2023-02-11 20:00] VITALS: BP 144/87
--- NOTE | 2023-02-11 22:30 | NUR ---
SCHEDULED MEDICATIONS GIVEN. PT TOLERATED WELL. ALL PRECAUTION IN PLACE. WILL CONTINUE TO MONITOR.
[2023-02-12] VITALS: BP 134/77
--- NOTE | 2023-02-12 | NUR ---
VITAL SIGNS STABLE. NO S/SX OF DISTRESS NOTED. NO COMPLAINS AT THIS TIME. ALL PRECAUTIONS IN PLACE. WILL CONTINUE TO MONITOR.
[2023-02-12] MEDS: ACETAMINOPHEN 325 MG TAB PO PRN (03:46)
[2023-02-12 04:00] VITALS: BP 128/67
[2023-02-12 06:09] LABS: BASOPHILS # (AUTO) 0.1 K/uL (0.00-0.22); BASOPHILS % (AUTO) 0.8 % (0.0-2.0); EOSINOPHILS % (AUTO) 0.3 % (0.0-4.0); HEMATOCRIT 38.2 % (36-52); HEMOGLOBIN 13.1 g/dL (12.0-18.0); LYMPHOCYTES # (AUTO) 1.4 K/uL (2.0-11.5); LYMPHOCYTES % (AUTO) 17.2 % (20.5-51.1); MEAN CORPUSCULAR HEMOGLOBIN 29 pg (27-31); MEAN CORPUSCULAR HGB CONC 34 g/dL (33-37); MONOCYTES # (AUTO) 1.3 K/uL (0.8-1.0); MONOCYTES % (AUTO) 15.7 % (1.7-9.3); NEUTROPHILS # (AUTO) 5.3 K/uL (1.8-7.7); PLATELET COUNT (AUTO) 181 K/uL (140-450); RED CELL DISTRIBUTION WIDTH 14.3 % (11.6-13.7)
[2023-02-12 06:33] LABS: ALBUMIN 3.4 g/dL (3.4-5.0); ANION GAP 12.9 (8-16); CREATININE 1.2 mg/dL (0.6-1.3); MAGNESIUM 1.7 mg/dL (1.8-2.4); POTASSIUM 3.9 mmol/L (3.5-5.1); TOTAL BILIRUBIN 0.7 mg/dL (0.0-1.0)
--- NOTE | 2023-02-12 07:35 | NUR ---
ENDORSED TO DAY SHIFT NURSE FOR CONTINUITY OF CARE. PT IS STABLE.
[2023-02-12 08:26] VITALS: BP 154/72
[2023-02-12] MEDS: VANCOMYCIN 1.25GM PREMIX 250 ML IV SCH (09:17)
[2023-02-12] MEDS: ENOXAPARIN 40 MG/0.4 ML SYR SUBQ SCH (09:18)
[2023-02-12 14:13] VITALS: BP 141/88
--- NOTE | 2023-02-12 16:40 | NUR ---
PATIENT ELOPEMENT THIS TIME.
== END 2023-02-12 16:30 | disposition left against medical advice (07) | DRG 720 ==
LOC: MED 18:35 → MTU 21:32 → MED 21:36
PROVIDERS: ADMIT Hospitalist; ATTEND Hospitalist
DX: A41.9 Sepsis, unspecified organism (principal); N17.9 Acute kidney failure, unspecified; I38 Endocarditis, valve unspecified; J45.909 Unspecified asthma, uncomplicated; E11.65 Type 2 diabetes mellitus with hyperglycemia; L03.116 Cellulitis of left lower limb; Z20.822 Contact with and (suspected) exposure to COVID-19
CPT/HCPCS: 36415; 71045; 80053; 80202; 81001; 83036; 83605; 83735; 85025; 85651; 86140; 87040; 87081; 87086; 93005; 93925; 93970; 96365; 96375; 99291; G0480; J0696; J1650; J1885; J3370; J3372; J3475; J7060; Q0092